=== PATIENT | male | born 1990 | race Caucasian/White ===

== ENCOUNTER 2024-07-01 10:38 | Outpatient (CLI) | payer BC, SELFPAY | END 2024-07-01 10:39 | disposition home or self-care (01) | LOC: LKVREF 10:41 | PROVIDERS: PCP Family Medicine; Visit Provider Family Medicine | DX: I10 Essential (primary) hypertension (principal); R07.9 Chest pain, unspecified; K21.9 Gastro-esophageal reflux disease without esophagitis | CPT/HCPCS: 80053; 80061 ==

== ENCOUNTER 2024-08-17 11:57 | Outpatient (CLI) | payer BC, SELFPAY | END 2024-08-17 11:58 | disposition home or self-care (01) | LOC: LKVREF 11:58 | PROVIDERS: PCP Family Medicine; Visit Provider Family Medicine | DX: D64.9 Anemia, unspecified (principal) | CPT/HCPCS: 82607; 82728; 83540 ==